=== PATIENT | male | born 1955 | race Caucasian/White ===

== ENCOUNTER 2016-03-07 16:30 | Outpatient (CLI) | payer BC, MEDICARE ==
[~2016-03-07 16:30] MED LIST: FENO67CA PO; FLUT1DIS26 IH; HYDR-3730 PO; LEVO88TA54 PO; MONT10TA24 PO; NIAC100045 PO; PANT40TA3 PO; SUCR1TAB PO
== END 2016-03-07 17:05 | disposition home or self-care (01) ==
LOC: SLEEP 16:30
PROVIDERS: ATTEND Family Medicine
DX: G47.10 Hypersomnia, unspecified (principal); R06.83 Snoring

== ENCOUNTER → 2016-10-16 | Outpatient (CLI) | payer BC, MEDICARE | LOC: LAB 13:45 | PROVIDERS: ATTEND Internal Medicine Cardiovascular Disease | DX: E03.9 Hypothyroidism, unspecified (principal); E78.2 Mixed hyperlipidemia; E66.9 Obesity, unspecified; Z82.49 Family history of ischemic heart disease and other diseases of the circulatory system ==

== ENCOUNTER → 2017-01-15 | Outpatient (CLI) | payer BC, MEDICARE | LOC: CARD 10:02 | PROVIDERS: ATTEND Internal Medicine Cardiovascular Disease | DX: K21.9 Gastro-esophageal reflux disease without esophagitis (principal); R07.89 Other chest pain; E78.2 Mixed hyperlipidemia; E66.9 Obesity, unspecified; Z82.49 Family history of ischemic heart disease and other diseases of the circulatory system | CPT/HCPCS: 93306 ==

== ENCOUNTER → 2017-01-31 | Outpatient (CLI) | payer BC, MEDICARE ==
[~2017-01-31] VITALS: Ht 185.4 cm; Wt 108.4 kg
[~2017-01-31] MED LIST changes: +CATHETER FLUSH 10 ML SYR IV PRN
[2017-01-31 13:17] VITALS: BP 111/77
[2017-01-31 13:28] VITALS: BP 129/65
--- NOTE | 2017-02-01 00:59 | STRESS TEST ---
DATE OF SERVICE: 01/31/2017 EXERCISE MYOVIEW STRESS TEST. REFERRING PHYSICIAN: Dr. Barrett. Baseline heart rate is 57. Baseline blood pressure 120/74. Baseline EKG is sinus rhythm with no ischemic changes. In summary, the patient was injected with 10.36 mCi of technetium-99 Myoview and the resting images were obtained. Then, the patient started exercising with a baseline heart rate, blood pressure and EKG mentioned above. At minute 10, the patient was injected with 30.3 mCi of technetium-99 Myoview, was able to finish a total of 11 minutes on standard Lev protocol with peak exercise level EKG was showing minimal nondiagnostic changes. Blood pressure was 148/77. During recovery, heart rate and blood pressure returned to baseline. EKG returned to baseline. The resting and stress images were reviewed and compared in the short axis, horizontal long axis, and vertical long axis views. Review of the images showed diaphragmatic attenuation affecting the quality of the images, mild decreased uptake at the mid to apical inferior wall with subtle reversibility. No significant ischemia was noted. SSS is 4, SDS 3, TID value 0.99. On the gated images, the left ventricle appeared to be normal size with normal contractility, calculated ejection fraction 59%. CONCLUSION: 1. Excellent exercise tolerance a total of 10 minutes on standard Lev protocol, total of 12.1 METS achieving 89% of maximum expected heart rate. 2. Appropriate heart rate and blood pressure response to exercise returned to baseline during recovery. 3. Nondiagnostic EKG changes with exercise, returned to baseline during recovery. 4. Diaphragmatic attenuation with typical male pattern. No significant ischemia or infarction on SPECT images. 5. Normal left ventricular size with normal contractility, calculated ejection fraction 59%. Job ID: [id number] DocumentID: [id number] Dictated Date: 01/31/2017 16:16:09 Healthcare Risk Control Consultant Date: 01/31/2017 23:21:40 Dictated By: CARLOS RDZ MD
== END ==
LOC: CARD 10:29
PROVIDERS: ATTEND Internal Medicine Cardiovascular Disease
DX: R07.89 Other chest pain (principal); E78.2 Mixed hyperlipidemia; E66.9 Obesity, unspecified; K21.9 Gastro-esophageal reflux disease without esophagitis; Z82.49 Family history of ischemic heart disease and other diseases of the circulatory system
CPT/HCPCS: 78452; 93017

== ENCOUNTER → 2018-04-02 | Outpatient (CLI) | payer BC, MEDICARE ==
[~2018-04-02] VITALS: Ht 190.5 cm; Wt 99.8 kg
[~2018-04-02] MED LIST changes: -CATHETER FLUSH 10 ML SYR IV PRN; +COLE1TAB PO; +LINA145C PO; +MAGN500C15 PO; +OMG1KC PO
== END | disposition home or self-care (01) ==
LOC: PREOP 06:20
PROVIDERS: ATTEND Specialist
DX: Z01.818 Encounter for other preprocedural examination (principal)

== ENCOUNTER 2018-04-05 07:10 | Day surgery (SDC) | payer BC, MEDICARE ==
[~2018-04-05] VITALS: Ht 190.5 cm; Wt 99.8 kg
[2018-04-05 07:15] VITALS: BP 98/68
[2018-04-05] MEDS ORDERED: TIMOLOL MALEATE 0.5% 5 ML (TIMOPTIC) BTL OU PRN (07:30)
[2018-04-05] MEDS ORDERED: LIDOCAINE PF 1% 2 ML AMP IR PRN (07:30)
[2018-04-05] MEDS ORDERED: MOXIFLOXACIN OPHTH SOLN 5 MG/ML 0.3 ML SYRINGE OP ONE (07:30)
[2018-04-05] MEDS ORDERED: POVIDONE (BETADINE) OPHTH SOLN 5% 30 ML OP ONE (07:30)
[2018-04-05] MEDS: TETRACAINE 0.5% OPHTH SOLN 4 ML BTL (SINGLE DOSE ONLY) OU PRN ×4 (07:33→07:54)
[2018-04-05] MEDS: CYCLOPENTOLATE 1% (CYCLOGYL) 2 ML DROPS OP SCH ×3 (07:41→07:54)
[2018-04-05] MEDS: PHENYLEPHRINE 10% OPHTH (NEO-SYN) 5 ML BTL OU SCH ×3 (07:41→07:54)
--- NOTE | 2018-04-05 07:54 | Ophthalmologist Pre-Op Note ---
Pre-Operative Progress Note H&P Reviewed The H&P was reviewed, patient examined and no changes noted. Date H&P Reviewed: Apr 05, 2018 Time H&P Reviewed: 07:53 Pre-Op Dx Cataract, Left Eye IMAN WHITLOCK MD Apr 05, 2018 07:54
[2018-04-05] MEDS ORDERED: MIDAZOLAM 2 MG/2 ML (VERSED) VIAL ONE (07:55)
--- NOTE | 2018-04-05 08:16 | Ophthalmology Operative Report ---
Cataract removal/placement IOL PREOPERATIVE DIAGNOSIS: Cataract Left Eye POSTOPERATIVE DIAGNOSIS: Cataract Left Eye PROCEDURE: Cataract removal and placement of posterior chamber implant, left eye SURGEON: Sidney Whitlock ANESTHESIA: Topical with sedation COMPLICATIONS: None ESTIMATED BLOOD LOSS: Minimal DESCRIPTION OF PROCEDURE: After proper informed consent was obtained, the patient, a 62 male, was taken to the Operating Room and the left eye was anesthetized with tetracaine. The left eye was then prepped and draped in the usual manner. A wire lid speculum was placed. A paracentesis was made at the left hand position. Preservative free lidocaine was injected into the anterior chamber followed by viscoelastic. A clear corneal incision was made in the temporal position. A capsulorrhexis was preformed and the central nuclear and cortical material were removed. The posterior capsule was polished and an Humberto 22.5 AU00T0 was placed into the capsular bag. The residual viscoelastic was aspirated and balanced saline solution was injected into the anterior chamber. Moxifloxacin was injected into the anterior chamber. The wound was checked and found to be water tight. The patient tolerated the procedure well without complications. SIDNEY WHITLOCK MD Apr 05, 2018 08:16
[2018-04-05 08:24] VITALS: BP 125/78
[2018-04-05] MEDS ORDERED: acetaZOLAMIDE ER 500 MG CAP (DIAMOX SEQUELS) PO ONE (09:00)
--- NOTE | 2018-04-05 12:50 | Anesthesia-General Post-Op ---
MAC Patient Condition Mental Status/LOC: Same as Preop Cardiovascular: Satisfactory Nausea/Vomiting: Absent Respiratory: Satisfactory Pain: Controlled Complications: Absent Post Op Complications Complications None Follow Up Care/Instructions Patient Instructions None needed. Anesthesiology Discharge Order Discharge Order Patient is doing well, no complaints, stable vital signs, no apparent adverse anesthesia problems. No complications reported per nursing. CK CRYSTAL CRNA Apr 05, 2018 12:50
== END 2018-04-05 08:24 | disposition home or self-care (01) ==
LOC: SDC 07:10
PROVIDERS: ATTEND Specialist
DX: H25.12 Age-related nuclear cataract, left eye (principal); J45.909 Unspecified asthma, uncomplicated; K21.9 Gastro-esophageal reflux disease without esophagitis; Z79.899 Other long term (current) drug therapy

== ENCOUNTER 2018-04-12 05:38 | Outpatient (CLI) | payer BC, MEDICARE ==
[~2018-04-12] VITALS: Ht 190.5 cm; Wt 99.8 kg
== END 2018-04-12 13:44 | disposition home or self-care (01) ==
LOC: PREOP 05:38
PROVIDERS: ATTEND Specialist
DX: Z01.818 Encounter for other preprocedural examination (principal)

== ENCOUNTER 2018-04-19 06:09 | Day surgery (SDC) | payer BC, MEDICARE ==
[~2018-04-19] VITALS: Ht 190.5 cm; Wt 99.8 kg
[2018-04-19] MEDS ORDERED: MOXIFLOXACIN OPHTH SOLN 5 MG/ML 0.3 ML SYRINGE OP ONE (06:15)
[2018-04-19] MEDS ORDERED: LIDOCAINE PF 1% 2 ML AMP IR PRN (06:15)
[2018-04-19] MEDS ORDERED: TIMOLOL MALEATE 0.5% 5 ML (TIMOPTIC) BTL OU PRN (06:15)
[2018-04-19] MEDS ORDERED: POVIDONE (BETADINE) OPHTH SOLN 5% 30 ML OP ONE (06:15)
[2018-04-19 06:20] VITALS: BP 113/80
[2018-04-19] MEDS: TETRACAINE 0.5% OPHTH SOLN 4 ML BTL (SINGLE DOSE ONLY) OU PRN ×4 (06:24→06:39)
[2018-04-19] MEDS: CYCLOPENTOLATE 1% (CYCLOGYL) 2 ML DROPS OP SCH ×3 (06:29→06:39)
[2018-04-19] MEDS: PHENYLEPHRINE 10% OPHTH (NEO-SYN) 5 ML BTL OU SCH ×3 (06:29→06:39)
--- NOTE | 2018-04-19 07:07 | Ophthalmologist Pre-Op Note ---
Pre-Operative Progress Note H&P Reviewed The H&P was reviewed, patient examined and no changes noted. Date H&P Reviewed: Apr 19, 2018 Time H&P Reviewed: 07:06 Pre-Op Dx Cataract, Right Eye IMAN WHITLOCK MD Apr 19, 2018 07:07
[2018-04-19] MEDS ORDERED: MIDAZOLAM 2 MG/2 ML (VERSED) VIAL ONE (07:12)
[2018-04-19] MEDS ORDERED: acetaZOLAMIDE ER 500 MG CAP (DIAMOX SEQUELS) PO ONE (07:30)
--- NOTE | 2018-04-19 07:38 | Ophthalmology Operative Report ---
Cataract removal/placement IOL PREOPERATIVE DIAGNOSIS: Cataract Right Eye POSTOPERATIVE DIAGNOSIS: Cataract Right Eye PROCEDURE: Cataract removal and placement of posterior chamber implant, right eye SURGEON: Sidney Whitlock ANESTHESIA: Topical with sedation COMPLICATIONS: None ESTIMATED BLOOD LOSS: Minimal DESCRIPTION OF PROCEDURE: After proper informed consent was obtained, the patient, a 62 male, was taken to the Operating Room and the right eye was anesthetized with tetracaine. The right eye was then prepped and draped in the usual manner. A wire lid speculum was placed. A paracentesis was made at the left hand position. Preservative free lidocaine was injected into the anterior chamber followed by viscoelastic. A clear corneal incision was made in the temporal position. A capsulorrhexis was preformed and the central nuclear and cortical material were removed. The posterior capsule was polished and Humberto 22.5 AU00T0 IOL was placed into the capsular bag. The residual viscoelastic was aspirated and balanced saline solution was injected into the anterior chamber. Moxifloxacin was injected into the anterior chamber. The wound was checked and found to be water tight. The patient tolerated the procedure well without complications. SIDNEY WHITLOCK MD Apr 19, 2018 07:38
[2018-04-19 07:50] VITALS: BP 126/72
--- NOTE | 2018-04-19 13:06 | Anesthesia-General Post-Op ---
MAC Patient Condition Mental Status/LOC: Same as Preop Cardiovascular: Satisfactory Nausea/Vomiting: Absent Respiratory: Satisfactory Pain: Controlled Complications: Absent Post Op Complications Complications None Follow Up Care/Instructions Patient Instructions None needed. Anesthesiology Discharge Order Discharge Order Patient is doing well, no complaints, stable vital signs, no apparent adverse anesthesia problems. No complications reported per nursing. PATRICIO CHAUDHARI CRNA Apr 19, 2018 13:06
== END 2018-04-19 07:50 | disposition home or self-care (01) ==
LOC: SDC 06:09
PROVIDERS: ATTEND Specialist
DX: H25.11 Age-related nuclear cataract, right eye (principal); J45.909 Unspecified asthma, uncomplicated; K21.9 Gastro-esophageal reflux disease without esophagitis; Z79.899 Other long term (current) drug therapy

== ENCOUNTER 2018-05-09 06:22 | Outpatient (CLI) | payer BC, MEDICARE ==
[~2018-05-09] VITALS: Ht 190.5 cm; Wt 99.8 kg
[2018-05-09] MEDS ORDERED: ASPI-586 PO (10:58)
== END 2018-05-09 11:07 | disposition home or self-care (01) ==
LOC: PREOP 06:22
PROVIDERS: ATTEND Surgery
DX: Z01.818 Encounter for other preprocedural examination (principal)

== ENCOUNTER 2018-05-13 09:20 | Day surgery (SDC) | payer BC, MEDICARE ==
[~2018-05-13] VITALS: Ht 190.5 cm; Wt 99.8 kg
[~2018-05-13 09:20] MED LIST changes: +ASPI-586 PO
[2018-05-13 09:30] VITALS: BP 128/105
[2018-05-13] MEDS ORDERED: LACTATED RINGERS 1,000 ML IV STA (09:36)
[2018-05-13] MEDS ORDERED: HURRICAINE EXT TUBE (BENZOCAINE) XX PRN (09:45)
[2018-05-13] MEDS ORDERED: LACTATED RINGERS 1,000 ML IV ONE (09:55)
--- NOTE | 2018-05-13 10:09 | Progress Note-Pre Operative ---
Pre-Operative Progress Note H&P Reviewed The H&P was reviewed, patient examined and no changes noted. Time Seen by Provider: 10:06 Date H&P Reviewed: May 13, 2018 Time H&P Reviewed: 10:07 Pre-Operative Diagnosis: Screening colon, Gastritis, Hx of Diverticulitis SHIRLEY CALVIN DO May 13, 2018 10:09
[2018-05-13] MEDS ORDERED: proPOfol 200 MG/20 ML (DIPRIVAN) VIAL IV ONE (10:23)
[2018-05-13] MEDS ORDERED: MIDAZOLAM 2 MG/2 ML (VERSED) VIAL ONE ×2 (10:23)
[2018-05-13] MEDS ORDERED: HURRICAINE EXT TUBE (BENZOCAINE) ONE (11:01)
--- NOTE | 2018-05-13 12:01 | Progress Note-Post Operative ---
Post-Operative Progess Note Surgeon (s)/Patient Access Director (s) Surgeon SHIRLEY CALVIN DO Patient Access Director: none Pre-Operative Diagnosis Screening colon, Gastritis, Hx of Diverticulitis Post-Operative Diagnosis Gastritis Gastric Polyp Hiatal Hernia Diverticulosis Internal Hemorrhoids Procedure & Operative Findings Date of Procedure 05/13/18 Procedure Performed/Findings EGD with Gastric Polypectomy EGD with bx Colonoscopy Anesthesia Type IV sedation by COLLEGE INTERN Estimated Blood Loss Estimated blood loss (mL): scant Specimens/Packing Specimens Removed antral bx Polypectomy x 2 from body of stomach GE jxn bx SHIRLEY CALVIN DO May 13, 2018 12:01
--- NOTE | 2018-05-13 12:02 | Anesthesia-General Post-Op ---
MAC Patient Condition Mental Status/LOC: Same as Preop Cardiovascular: Satisfactory Nausea/Vomiting: Absent Respiratory: Satisfactory Pain: Controlled Complications: Absent Post Op Complications Complications None Follow Up Care/Instructions Patient Instructions None needed. Anesthesiology Discharge Order Discharge Order Patient is doing well, no complaints, stable vital signs, no apparent adverse anesthesia problems. No complications reported per nursing. PATRICIO CHAUDHARI CRNA May 13, 2018 12:02
[2018-05-13 12:10] VITALS: BP 98/56
--- NOTE | 2018-05-13 12:30 | Endoscopy Discharge Instruct ---
Endo Procedure/Findings Findings 1.: Hiatal Hernia, Gastritis 2.: Diverticulosis 3.: Internal Hemorrhoids Discharge Instructions - Activity: You might feel a little sleepy until tomorrow. This is due to the medicine you received to relax you. Until tomorrow, you should: NOT drive a car, operate machinery or power tools. NOT drink any alcoholic beverages. NOT make any important decisions or sign importortant papers. Do not return to work until tomorrow, unless otherwise instructed. Resume previous activities tomorrow. Diet: Start by taking liquids. If you tolerate liquids, advance to solid food. Make an appt for 2 weeks. Notify Physician - If you experience excessive bleeding, unusual abdominal pain, fever, or chest pain, contact your doctor immediately. Follow-Up: - I have received and understand the above instructions and will call my doctor if I have any further questions. Patient Signature Date Nurse Signature Other (Relationship) SHIRLEY CALVIN DO May 13, 2018 12:30
[2018-05-13 12:40] VITALS: BP 105/71
[2018-05-13 13:10] VITALS: BP 105/71
[2018-05-13 13:15] VITALS: BP 105/71
--- NOTE | 2018-05-14 04:26 | OPERATIVE REPORT ---
DATE OF SERVICE: PREOPERATIVE DIAGNOSES: Gastritis, history of left lower quadrant pain and diverticulosis, needed a screening colonoscopy. POSTOPERATIVE DIAGNOSES: 1. Gastritis. 2. Gastric polyp. 3. Hiatal hernia. 4. Diverticula. 5. Internal hemorrhoids. PROCEDURES: 1. EGD with gastric polypectomy. 2. EGD with biopsy. 3. Colonoscopy. SURGEON: Andres Yanes DO. DEBURRING AND TOOLING MACHINE OPERATOR: None. ANESTHESIA: IV sedation by JANITOR SUPERVISOR. SPECIMEN: One biopsy from the antrum, two polyps from the body of the stomach and one biopsy of the GE junction. BLOOD LOSS: Scant. FLUIDS: Per anesthesia. POSTOPERATIVE CONDITION: Stable. INDICATION FOR PROCEDURE: The patient is a 62-year-old male who has never had a colonoscopy and needs one for screening. In addition, he has had episodes of diverticulitis and left lower quadrant pain that has been going on for a while and he has had chronic gastritis. FINDINGS: The patient had some gastritis. He had a couple of polyps in the stomach and a small hiatal hernia. In the colon, he had some diverticula and possibly an area of narrowing where the diverticula was, but did not see any severe narrowing, no diverticulitis. He did have some internal hemorrhoids. PROCEDURE NOTE: After informed consent was obtained, the patient was brought to the endoscopy suite, placed in the bed in left lateral decubitus position and administered IV sedation by the JANITOR SUPERVISOR who then monitored his vitals the entire time, heart rate, blood pressure and pulse ox and the scope was inserted down the mouth through the esophagus into the stomach. Upon entering the stomach, noted some gastritis near the antrum, took a biopsy here and then pushed into the duodenum, looked normal, took a picture and on the way, I noted a small hiatal hernia, took a picture of this and then pulling back into the body of stomach, saw a couple large polyps, elected to do polypectomy of these, able to move them en bloc with the biopsy forceps and then retroflexed the scope, saw again the small hiatal hernia. Pulled back into the GE junction, did another biopsy of the GE junction and then pulled the scope up the esophagus, did not see any other pathology in and out the mouth. Switched scopes and switched gloves, went down below and then inserted the colonoscope, pushed in, noted some diverticula on the way. In the sigmoid area, there was some narrowing, little bit tough to get past here, but able to get through here, took some pictures of diverticula, able to get all the way to the cecum, took a picture of appendiceal orifice and able to get into the terminal ileum, took a picture and then slowly withdrew the scope insufflating to look circumferentially at the giron looking at the cecum up the ascending colon to the hepatic flexure, then down the transverse colon, splenic flexure, into the descending colon and down in the sigmoid. Again, through the sigmoid, saw some large diverticula. I did not see any inflammation that just appeared to be tortuous and possibly a little bit of narrowing, but not very much easily able to get the scope by and then down into the rectum, retroflexed in the rectal vault, saw some internal hemorrhoids, probably grade I to may be grade II. No other obvious pathology. Scope was removed. The patient tolerated the procedure. He was recovered in the endoscopy suite. Job ID: [id number] DocumentID: [id number] Dictated Date: 05/13/2018 16:23:06 Fire Suppression Captain Date: 05/14/2018 04:25:20 Dictated By: ANDRES YANES DO
== END 2018-05-13 13:15 | disposition home or self-care (01) ==
LOC: ENDO 09:20
PROVIDERS: ATTEND Surgery
DX: Z12.11 Encounter for screening for malignant neoplasm of colon (principal); K57.30 Diverticulosis of large intestine without perforation or abscess without bleeding; K21.0 Gastro-esophageal reflux disease with esophagitis; K29.70 Gastritis, unspecified, without bleeding; K31.7 Polyp of stomach and duodenum; K44.9 Diaphragmatic hernia without obstruction or gangrene; K64.9 Unspecified hemorrhoids; J45.909 Unspecified asthma, uncomplicated; E78.2 Mixed hyperlipidemia; E03.9 Hypothyroidism, unspecified; Z79.82 Long term (current) use of aspirin; Z79.899 Other long term (current) drug therapy

== ENCOUNTER → 2018-05-31 | Outpatient (CLI) | payer BC, MEDICARE ==
--- NOTE | 2018-05-31 13:45 | Diagnostic Imaging Report ---
PROCEDURE: CT abdomen and pelvis without contrast. TECHNIQUE: Multiple contiguous axial images were obtained through the abdomen and pelvis without the use of intravenous contrast. Auto Exposure Controls were utilized during the CT exam to meet ALARA standards for radiation dose reduction. INDICATION: Worsening severity of constipation. FINDINGS: There is no appendicitis or scattered colonic and sigmoidal diverticula without findings of diverticulitis. No abscess, hematoma, or fluid collection. There is no fecal impaction or abnormal fecal load. No pericolonic or perienteric edema. There is no focal inflammatory process. Some bulging of the supra-and infra-umbilical ventral abdominal wall. No abdominal wall fluid collection. No herniated viscus. No opaque urinary tract stones. There is no hydronephrosis. Low-density right renal nodule probably but inconclusively cystic. Its evaluation is limited by the absence of contrast. IMPRESSION: 1. Noninflamed diverticulosis. No evidence for diverticulitis or appendicitis. Unobstructed nonacute urinary tracts with indeterminate right renal nodule favoring cyst; nonemergent renal ultrasound on an outpatient basis suggested to confirm benign etiology. 2. No bowel, biliary, or urinary tract obstruction and no acute abnormalities identified. Dictated by: Dictated on workstation # [id number]
== END ==
LOC: RAD 12:03
PROVIDERS: ATTEND Surgery
DX: K57.30 Diverticulosis of large intestine without perforation or abscess without bleeding (principal); N28.89 Other specified disorders of kidney and ureter; K59.00 Constipation, unspecified
CPT/HCPCS: 74176